=== PATIENT | male | born 1995 | race Two or more races ===

== ENCOUNTER 2023-05-24 02:49 | Emergency (ER) | payer BC ==
[2023-05-24 03:05] VITALS: BP 121/79; PULSE 81; RESP 18
[2023-05-24] MEDS ORDERED: IBUP-1493 PO (04:34)
== END 2023-05-24 07:41 | disposition home or self-care (01) ==
LOC: EDH 02:49
DX: S09.90XA Unspecified injury of head, initial encounter (principal); F20.9 Schizophrenia, unspecified; W18.39XA Other fall on same level, initial encounter; Y93.89 Activity, other specified; Y92.89 Other specified places as the place of occurrence of the external cause; Y99.8 Other external cause status
CPT/HCPCS: 70450